=== PATIENT | male | born 1985 | race African-American/Black ===

== ENCOUNTER 2018-11-18 12:52 | Emergency (ER) | payer SELFPAY ==
[~2018-11-18] VITALS: Ht 193 cm; Wt 157.0 kg
[~2018-11-18 12:52] MED LIST: ZOF8 PO
[2018-11-18 12:55] VITALS: BP 145/91; PULSE 72; RESP 19; Ht 193 cm; Wt 157.0 kg
[2018-11-18] MEDS ORDERED: ONDANSETRON 4 MG INJ IV STA (13:32)
[2018-11-18] MEDS ORDERED: SOD CHLORIDE 0.9% 1,000 ML IV STA (13:32)
[2018-11-18] MEDS ORDERED: ONDA4TAB14 PO (14:44)
[2018-11-18] MEDS ORDERED: MECL-77 PO (14:44)
--- NOTE | 2018-11-18 14:55 | ERD ---
ER Documentation Chief Complaint Chief Complaint bib self, cc: n/v since this morning, had [employer] last night HPI 33-year-old male presenting with nausea and vomiting since this morning. Patient states he has dizziness. He states that started when he woke up this morning. He has had a history of vertigo however is unsure if that is the cause of his symptoms or if he eats [employer] last night. He denies any abdominal pain. Denies fever. Denies chest pain or shortness of breath. Has not taken medications for his symptoms. Denies medical problems. NKDA. Surgical history denies. Social history denies ROS All systems reviewed and are negative except as per history of present illness. Medications Home Meds Active Scripts Meclizine Hcl* (Meclizine Hcl*) 25 Mg Tablet, 25 MG PO Q8H PRN for DIZZINESS, #10 TAB Prov:JUAN ESTES PA-C 11/18/18 Ondansetron (Ondansetron Odt) 4 Mg Tab.rapdis, 4 MG PO Q6H PRN for NAUSEA AND/OR VOMITING, #10 TAB Prov:JUAN ESTES PA-C 11/18/18 Ondansetron Hcl* (Zofran* ODT) 8 mg -ODT Tab.disper, 8 MG PO Q6 PRN for NAUSEA AND/OR VOMITING, #10 TAB Prov:JYOTSNA ZULUAGA PA-C 01/04/16 Allergies Allergies: Coded Allergies: No Known Allergy (Unverified , 11/18/18) PMhx/Soc Medical and Surgical Hx: pt denies Surgical Hx Hx Respiratory Disorders: Yes (ASTHMA) Hx Miscellaneous Medical Probl: Yes (VERTIGO) Hx Alcohol Use: Yes (SOCIALLY) Hx Substance Use: No Smoking Status: Never smoker FmHx Family History: No diabetes, No coronary disease, No other Physical Exam Vitals Vital Signs Date Temp Pulse Resp B/P (MAP) Pulse Ox O2 O2 Flow FiO2 Time Delivery Rate 11/18/18 97.0 72 19 145/91 100 12:55 (109) Physical Exam GENERAL: The patient is well-appearing, well-nourished, in no acute distress HEENT: Atraumatic. Conjunctivae are pink. Pupils equal, round, and reactive to light. There is no scleral icterus. Tympanic membranes clear bilaterally. Oropharynx clear. No nystagmus or photophobia. CHEST: Clear to auscultation bilaterally. There are no rales, wheezes or rhonchi. HEART: Regular rate and rhythm. No murmurs, clicks, rubs or gallops. No S3 or S4. ABDOMEN:Soft, nontender and nondistended. Good bowel sounds. No rebound or guarding. No gross peritonitis. No gross organomegaly or masses. No Beaulieu sign or McBurney point tenderness. NEUROLOGIC: Alert and oriented. Cranial nerves II through XII intact. Motor strength in all 4 extremities with 5 out of 5 strength. Sensation grossly intact. Normal speech and gait. Result Diagram: 11/18/18 1407 11/18/18 1407 Results 24 hrs Laboratory Tests Test 11/18/18 14:07 White Blood Count 6.3 10^3/ul Red Blood Count 5.01 10^6/ul Hemoglobin 14.5 g/dl Hematocrit 44.1 % Mean Corpuscular Volume 88.0 fl Mean Corpuscular Hemoglobin 28.9 pg Mean Corpuscular Hemoglobin Concent 32.9 g/dl Red Cell Distribution Width 13.1 % Platelet Count 267 10^3/UL Mean Platelet Volume 11.9 fl Immature Granulocytes % 0.300 % Neutrophils % 71.1 % Lymphocytes % 20.6 % Monocytes % 6.6 % Eosinophils % 1.1 % Basophils % 0.3 % Nucleated Red Blood Cells % 0.0 /100WBC Immature Granulocytes # 0.020 10^3/ul Neutrophils # 4.4 10^3/ul Lymphocytes # 1.3 10^3/ul Monocytes # 0.4 10^3/ul Eosinophils # 0.1 10^3/ul Basophils # 0.0 10^3/ul Nucleated Red Blood Cells # 0.0 10^3/ul Urine Color YELLOW Urine Clarity CLEAR Urine pH 6.0 Urine Specific Kennan 1.019 Urine Ketones NEGATIVE mg/dL Urine Nitrite NEGATIVE mg/dL Urine Bilirubin NEGATIVE mg/dL Urine Urobilinogen NEGATIVE mg/dL Urine Leukocyte Esterase NEGATIVE Tone/ul Urine Microscopic RBC 0 /HPF Urine Microscopic WBC 2 /HPF Urine Hemoglobin NEGATIVE mg/dL Urine Glucose NEGATIVE mg/dL Urine Total Protein 1+ mg/dl Sodium Level 141 mmol/L Potassium Level 4.4 mmol/L Chloride Level 106 mmol/L Carbon Dioxide Level 23 mmol/L Anion Gap 12 Blood Urea Nitrogen 11 mg/dl Creatinine 0.74 mg/dl Est Glomerular Filtrat Rate mL/min > 60 mL/min Glucose Level 125 mg/dl Calcium Level 9.8 mg/dl Total Bilirubin 0.3 mg/dl Direct Bilirubin 0.00 mg/dl Indirect Bilirubin 0.3 mg/dl Aspartate Amino Transf (AST/SGOT) 28 IU/L Alanine Aminotransferase (ALT/SGPT) 28 IU/L Alkaline Phosphatase 57 IU/L Total Protein 7.5 g/dl Albumin 4.3 g/dl Globulin 3.20 g/dl Albumin/Globulin Ratio 1.34 Lipase 63 U/L Current Medications Medications Dose Sig/Shirin Start Time Status Last (Trade) Ordered Route PRN Stop Time Admin Dose Reason Admin Sodium 1,000 ml @ Q1H STAT 11/18/18 DC 11/18/18 Chloride 1,000 mls/hr IV 13:32 14:12 11/18/18 14:31 Ondansetron 4 mg ONCE STAT 11/18/18 DC 11/18/18 HCl (Zofran IV 13:32 14:12 Inj) 11/18/18 13:33 Meclizine 25 mg ONCE ONCE 11/18/18 11/18/18 HCl PO 15:00 14:47 (Antivert) 11/18/18 15:01 Procedures/MDM ER course: 1 L normal saline given ED. Blood work normal. Zofran and meclizine given ED. On reevaluation patient symptoms were improving. MDM: 33-year-old male presenting with vomiting. I have low suspicion for cardiac or pulmonary. I have low suspicion for acute abdominal emergency. I have low suspicion for dehydration. Patient may have food poisoning versus v omiting secondary to vertigo however I did not feel that there is indication for scans or further evaluation. Patient did not have a headache and neuro exam is within normal limits. Patient is discharged stricter precautions and told to follow-up with primary care within 1-2 days for close evaluation. Patient is discharged stricter precautions. All questions answered at discharge Departure Diagnosis: Primary Impression: Dizziness Additional Impression: Vomiting Condition: Stable Patient Instructions: Dizziness, Unk Cause, Vomiting (6Y-Adult) Referrals: COMMUNITY CLINICS YOU HAVE RECEIVED A MEDICAL SCREENING EXAM AND THE RESULTS INDICATE THAT YOU DO NOT HAVE A CONDITION THAT REQUIRES URGENT TREATMENT IN THE EMERGENCY DEPARTMENT. FURTHER EVALUATION AND TREATMENT OF YOUR CONDITION CAN WAIT UNTIL YOU ARE SEEN IN YOUR DOCTORS OFFICE WITHIN THE NEXT 1-2 DAYS. IT IS YOUR RESPONSIBILITY TO MAKE AN APPOINTMENT FOR FOLOW-UP CARE. IF YOU HAVE A PRIMARY DOCTOR --you should call your primary doctor and schedule an appointment IF YOU DO NOT HAVE A PRIMARY DOCTOR YOU CAN CALL OUR PHYSICIAN REFERRAL HOTLINE AT IF YOU CAN NOT AFFORD TO SEE A PHYSICIAN YOU CAN CHOSE FROM THE FOLLOWING [facility] [address] [facility] [address] [facility] [address] [facility] [address] [facility] [address] [facility]. [address] Additional Instructions: FOLLOW UP WITH YOUR PRIMARY CARE PHYSICIAN TOMORROW.Return to this facility if you are not improving as expected. JUAN ESTES PA-C Nov 18, 2018 14:55
[2018-11-18] MEDS ORDERED: MECLIZINE 12.5 MG TAB PO ONE (15:00)
== END 2018-11-18 15:24 | disposition home or self-care (01) ==
LOC: FTE 12:52
DX: R42 Dizziness and giddiness (principal); J45.909 Unspecified asthma, uncomplicated
CPT/HCPCS: 36415; 80053; 81001; 83690; 85025; 96361; 96374; 99284; J2405; J7030